=== PATIENT | female | born 1950 | race Caucasian/White ===

== ENCOUNTER 2017-09-03 04:57 | Emergency (ER) | payer OTHER ==
[~2017-09-03 04:57] MED LIST: ASPI1TAB7; BACT800T5 PO; CIPR500T4 PO; MISC1TAB9 PO; MULT-65 PO
[2017-09-03 05:01] VITALS: BP 151/72; PULSE 63; RESP 20; TEMP 98; O2SAT 96
--- NOTE | 2017-09-03 05:01 | PD ---
HPI Chief Complaint: ABD PAIN Time Seen by Provider: 05:00 Travel History International Travel<30 days: No Contact w/Intl Traveler<30days: No Traveled to known affect area: No History of Present Illness HPI Patient complains of sudden onset abdominal pain, sharp crampy, 6 out of 10, left lower quadrant/left flank, nonradiating very similar to her previous diverticulitis episodes. Patient admits to eating a bunch of peanuts last night. Denies any alleviating or aggravating factors. He denies any associated factors such as fever, rash, nausea, vomiting, diarrhea, flank pain, chest pain, headache, sore throat/cough/runny nose... Also denies any dysuria or hematuria, the patient does have a history of urinary incontinence for which he takes oxybutynin patient states that she also was recently started on trazodone for insomnia. No known drug allergy Past medical history significant for diverticulitis PFSH Social History Tobacco Use: No Allergies-Medications (Allergen,Severity, Reaction): Coded Allergies: No Known Allergies (Verified Adverse Reaction, Unknown, 09/03/17) Reported Meds & Prescriptions Reported Meds & Active Scripts Active Reported Oxybutynin ER 24 HR (Oxybutynin Chloride) 5 Mg Tab 5 Mg PO DAILY Trazodone (Trazodone HCl) 50 Mg Tab 50 Mg PO HS Review of Systems General / Constitutional: No: Fever Eyes: No: Visual changes HENT: No: Headaches Cardiovascular: No: Chest Pain or Discomfort Respiratory: No: Shortness of Breath Gastrointestinal: Positive: Abdominal Pain Genitourinary: No: Dysuria Musculoskeletal: No: Pain Skin: No Rash Neurologic: No: Weakness Psychiatric: No: Depression Endocrine: No: Polydipsia Hematologic/Lymphatic: No: Easy Bruising Physical Exam Narrative GENERAL: SKIN: Warm and dry. HEAD: Atraumatic. Normocephalic. EYES: Pupils equal and round. No scleral icterus. No injection or drainage. ENT: No nasal bleeding or discharge. Mucous membranes pink and moist. NECK: Trachea midline. No JVD. CARDIOVASCULAR: Regular rate and rhythm. RESPIRATORY: No accessory muscle use. Clear to auscultation. Breath sounds equal bilaterally. GASTROINTESTINAL: Abdomen soft, LLQ TT PERCUSSION, nondistended. MUSCULOSKELETAL: Extremities without clubbing, cyanosis, or edema. No obvious deformities. NEUROLOGICAL: Awake and alert. No obvious cranial nerve deficits. Motor grossly within normal limits. Five out of 5 muscle strength in the arms and legs. Normal speech. PSYCHIATRIC: Appropriate mood and affect; insight and judgment normal. Data Data Last Documented VS Vital Signs Date Time Temp Pulse Resp B/P (MAP) Pulse Ox O2 Delivery O2 Flow Rate FiO2 09/03/17 06:17 16 96 Room Air 09/03/17 05:01 98.0 63 Orders Orders Complete Blood Count With Diff (09/03/17 05:13) Comprehensive Metabolic Panel (09/03/17 05:13) Lipase (09/03/17 05:13) Prothrombin Time / Inr (Pt) (09/03/17 05:13) Act Partial Throm Time (Ptt) (09/03/17 05:13) Urinalysis - C+S If Indicated (09/03/17 05:13) Ct Abd/Pel W/O Iv Contrast (09/03/17 05:13) Iv Access Insert/Monitor (09/03/17 05:13) Ecg Monitoring (09/03/17 05:13) Oximetry (09/03/17 05:13) NPO (09/03/17 05:13) Morphine Inj (Morphine Inj) (09/03/17 05:15) Sodium Chlor 0.9% 1000 Ml Inj (Ns 1000 M (09/03/17 05:13) Sodium Chloride 0.9% Flush (Ns Flush) (09/03/17 05:15) Electrocardiogram (09/03/17 05:13) Ketorolac Inj (Toradol Inj) (09/03/17 05:30) Prochlorperazine Inj (Compazine Inj) (09/03/17 05:45) Diphenhydramine Inj (Benadryl Inj) (09/03/17 05:45) Labs Laboratory Tests Test 09/03/17 05:28 White Blood Count 8.8 TH/MM3 Red Blood Count 4.77 MIL/MM3 Hemoglobin 13.9 GM/DL Hematocrit 41.2 % Mean Corpuscular Volume 86.3 FL Mean Corpuscular Hemoglobin 29.1 PG Mean Corpuscular Hemoglobin Concent 33.7 % Red Cell Distribution Width 12.6 % Platelet Count 212 TH/MM3 Mean Platelet Volume 8.3 FL Neutrophils (%) (Auto) 72.3 % Lymphocytes (%) (Auto) 20.1 % Monocytes (%) (Auto) 6.4 % Eosinophils (%) (Auto) 0.9 % Basophils (%) (Auto) 0.3 % Neutrophils # (Auto) 6.3 TH/MM3 Lymphocytes # (Auto) 1.8 TH/MM3 Monocytes # (Auto) 0.6 TH/MM3 Eosinophils # (Auto) 0.1 TH/MM3 Basophils # (Auto) 0.0 TH/MM3 CBC Comment DIFF FINAL Differential Comment Prothrombin Time 11.1 SEC Prothromb Time International Ratio 1.1 RATIO Activated Partial Thromboplast Time 24.8 SEC Blood Urea Nitrogen 19 MG/DL Creatinine 0.90 MG/DL Random Glucose 148 MG/DL Total Protein 7.0 GM/DL Albumin 3.7 GM/DL Calcium Level 8.9 MG/DL Alkaline Phosphatase 73 U/L Aspartate Amino Transf (AST/SGOT) 13 U/L Alanine Aminotransferase (ALT/SGPT) 24 U/L Total Bilirubin 0.6 MG/DL Sodium Level 139 MEQ/L Potassium Level 3.6 MEQ/L Chloride Level 106 MEQ/L Carbon Dioxide Level 24.7 MEQ/L Anion Gap 8 MEQ/L Estimat Glomerular Filtration Rate 62 ML/MIN Lipase 52 U/L [facility] Medical Decision Making Medical Screen Exam Complete: Yes Emergency Medical Condition: Yes Medical Record Reviewed: Yes Interpretation(s) EKG shows normal sinus rhythm, 69 bpm, motion artifact, normal intervals, LVH, but without any evidence of ST elevation PA Differential Diagnosis Pyelonephritis versus kidney stones versus pancreatitis versus colitis versus diverticulitis Narrative Course CBC shows no leukocytosis, no anemia, normal platelet count, no left shift Coagulation profile is within normal limits Electrolytes are all within normal limits, normal kidney/liver and pancreatic functions. CT abdomen pelvis read by radiologist as 3 mm stone in the distal left UVJ with moderate dilation of the left collecting system and left ureter, colonic diverticula in the sigmoid colon but without active diverticulitis. Diagnosis Primary Impression: Ureterolithiasis Patient Instructions: General Instructions, Kidney Stones (DC) Scripts Tramadol (Ultram) 50 Mg Tab 50 MG PO Q8H Y for BREAKTHROUGH PAIN for 3 Days, #9 TAB 0 Refills Prov: Israel Garg MD 09/03/17 Ketorolac (Ketorolac) 10 Mg Tab 10 MG PO TID Y for Pain Management for 5 Days, #15 TAB 0 Refills Prov: Israel Garg MD 09/03/17 Disposition: 01 DISCHARGE HOME Condition: Stable Israel Garg MD September 03, 2017 05:01
[2017-09-03] MEDS ORDERED: TRAZ50TA12 PO (05:13)
[2017-09-03] MEDS ORDERED: SODIUM CHLOR 0.9% 1000 ML INJ 1,000 ML IV SCH (05:13)
[2017-09-03] MEDS ORDERED: OXYB5TAB PO (05:13)
[2017-09-03] MEDS ORDERED: SODIUM CHLORIDE 0.9% FLUSH 10 ML FLUSH IV FLUSH PRN (05:15)
[2017-09-03] MEDS ORDERED: MORPHINE SULFATE 4 MG/ML INJ IV PUSH ONE (05:15)
[2017-09-03] MEDS ORDERED: KETOROLAC TROMETHAMINE 30 MG/ML (IVP) VIAL IV PUSH ONE (05:30)
[2017-09-03] MEDS ORDERED: PROCHLORPERAZINE INJ 10 MG/2 ML VIAL IV PUSH ONE (05:45)
[2017-09-03] MEDS ORDERED: diphenhydrAMINE HCL 50 MG/ML VIAL IV PUSH ONE (05:45)
[2017-09-03 05:46] LABS: AUTOMATED NEUTROPHIL # 6.3 TH/MM3 (1.8-7.7); BASOPHIL % 0.3 % (0.0-2.0); EOSINOPHIL # 0.1 TH/MM3 (0-0.4); EOSINOPHIL % 0.9 % (0.0-4.0); HEMATOCRIT 41.2 % (35.0-46.0); HEMOGLOBIN 13.9 GM/DL (11.6-15.3); LYMPH % 20.1 % (9.0-44.0); LYMPHOCYTE # 1.8 TH/MM3 (1.0-4.8); MEAN CELL VOLUME 86.3 FL (80.0-100.0); MEAN CORPUSCULAR HEMOGLOBIN 29.1 PG (27.0-34.0); MEAN CORPUSCULAR HGB CONC 33.7 % (32.0-36.0); MEAN PLATELET VOLUME 8.3 FL (7.0-11.0); MONO % 6.4 % (0.0-8.0); MONOCYTE # 0.6 TH/MM3 (0-0.9); NEUT % 72.3 % (16.0-70.0); PLATELET COUNT 212 TH/MM3 (150-450); RED BLOOD COUNT 4.77 MIL/MM3 (4.00-5.30); RED CELL DISTRIBUTION WIDTH 12.6 % (11.6-17.2); WHITE BLOOD COUNT 8.8 TH/MM3 (4.0-11.0)
[2017-09-03 05:48] LABS: CHLORIDE 106 MEQ/L (98-107); SODIUM (NA) 139 MEQ/L (136-145)
[2017-09-03 05:51] LABS: CALCIUM 8.9 MG/DL (8.5-10.1)
[2017-09-03 05:52] LABS: ALBUMIN 3.7 GM/DL (3.4-5.0); BICARBONATE 24.7 MEQ/L (21.0-32.0); BLOOD UREA NITROGEN 19 MG/DL (7-18); GLUCOSE,RANDOM 148 MG/DL (74-106); INTERNATIONAL NORMALIZED RATIO 1.1 RATIO; PROTHROMBIN TIME - PATIENT 11.1 SEC (9.8-11.6)
[2017-09-03 05:55] LABS: ALT (GPT) 24 U/L (10-53); AST (GOT) 13 U/L (15-37); GLOMERULAR FILTRATION RATE 62 ML/MIN (>89)
[2017-09-03 05:56] LABS: TOTAL BILIRUBIN ADULT 0.6 MG/DL (0.2-1.0)
[2017-09-03 05:58] LABS: ALKALINE PHOSPHATASE 73 U/L (45-117)
--- NOTE | 2017-09-03 06:15 | RADRPT ---
EXAM DATE: 09/03/2017 6:03 AM EDT AGE/SEX: 67 years / Female INDICATIONS: Left lower quadrant pain for 1 hour CLINICAL DATA: This is the patient's initial encounter. Patient reports that signs and symptoms have been present for 1 day and indicates a pain score of 6/10. MEDICAL/SURGICAL HISTORY: Diverticulitis. Tubal ligation. RADIATION DOSE: 17.48 CTDI (mGy) COMPARISON: No prior [facility] exams available for comparison. TECHNIQUE: Multiple contiguous axial images were obtained through the abdomen. Images were obtained using multiple row detector helical technique. Using dose reduction techniques, radiation dose was ke pt as low as reasonably achievable to obtain optimal diagnostic quality images. FINDINGS: Lower Lungs: There is increased density at the posterior lower lobes bilaterally likely related to at electasis or minimal consolidation. Liver: There are several hypodensities seen within the liver measuring up to 1.4 cm. These are nonspe cific. The gallbladder is unremarkable. There is no dilation of the biliary tree. Spleen: Homogeneous density without enlargement. Pancreas: Unremarkable without mass or calcification. Kidneys: There is moderate dilatation of the left collecting system and left ureter down to the leve l of the left UVJ where there is a 3 mm stone. The right kidney is unremarkable. Adrenal Glands: Unremarkable. Aorta: The aorta and proximal iliac vessels are grossly unremarkable without aneurysmal dilation. Bowel/Mesentery: There is a mild hiatal hernia present. There are scattered diverticula. There appea rs to be a large diverticula at the sigmoid colon measuring over 5 cm. Abdominal Wall: Intact. Retroperitoneum: No evidence of adenopathy in the retrocrural, para-aortic, or deep pelvic regions. Bladder: Contours are smooth. Reproductive Organs: No abnormal masses or calcifications seen. Clips are seen lateral to the uterus bilaterally likely related to fallopian tubal ligation clips. Inguinal: The inguinal region is unremarkable without evidence of adenopathy. Bony Structures: There is degenerative change in the lumbar spine. CONCLUSION: 1. 3 mm stone in the distal left UVJ with moderate dilatation of the left collecting system and left ureter. 2. Colonic diverticula including a very large diverticula in the sigmoid colon. Electronically signed by: Guilherme Thayer MD 09/03/2017 6:13 AM EDT
[2017-09-03 06:17] VITALS: RESP 16; O2SAT 96
[2017-09-03] MEDS ORDERED: TRAM50 PO (06:27)
[2017-09-03] MEDS ORDERED: KETO10 PO (06:27)
[2017-09-03 06:40] VITALS: RESP 16
[2017-09-03 06:51] VITALS: BP 179/86
--- NOTE | 2017-09-03 18:10 | EKG ---
Date Performed: 09/03/2017 Time Performed: 05:21:36 PTAGE: 67 years EKG: Sinus rhythm NORMAL ECG NO PREVIOUS TRACING DOCTOR: Aydee Peres Interpretating Date/Time 09/03/2017 18:04:13
== END 2017-09-03 06:56 | disposition home or self-care (01) ==
LOC: PHED 04:57
DX: N20.1 Calculus of ureter (principal); K57.30 Diverticulosis of large intestine without perforation or abscess without bleeding; G47.00 Insomnia, unspecified; Z79.899 Other long term (current) drug therapy
CPT/HCPCS: 74176; 80053; 83690; 85025; 85610; 85730; 93005; 96361; 96374; 96375; 99285; J0780; J1200; J1885; J2270; J7030